=== PATIENT | female | born 1965 | race African-American/Black ===

== ENCOUNTER 2017-06-29 12:53 | Outpatient (CLI) | payer BC ==
--- NOTE | 2017-06-29 14:52 | Ultrasound Report ---
Bilateral diagnostic mammogram with sonogram right breast: Compared to 03/21/13. CAD study utilized. History: Palpable mass right breast. Findings: Heterogeneous breast parenchyma bilaterally being more dense on the right breast from 12 to 4:00. No discrete mass is seen. There is thickening of the skin noted around the areola with retraction. No microcalcification. Benign appearing axillary nodes. Sonographic examination of right breast reveals a complex mass measuring 2.8 x 1.9 x 3.2 cm in diameter at approximate 1:00 position with edema of the adjacent soft tissue. There is hypoechoic spiculated mass identified in the subareolar area right breast. There is a benign cyst measuring 0.8 cm in diameter noted at 9:00 right breast. Single right axillary lymph node is noted measuring 1.7 cm in diameter intermediate for malignancy. 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 Initial MRI scan recommended for further evaluation. Dr. Hernández's nurse was informed of the findings at 2:46 PM on 06/19/17. BI-RADS CATEGORY: 0 = Needs additional imaging evaluation ACR BI-RADS MAMMOGRAPHIC CODES: 0 = Needs additional imaging evaluation; 1 = Negative; 2 = Benign; 3 = Probably benign; 4 = Suspicious; 5 = Malignant; 6 = Known biopsy-proven malignancy COMMENT: 1. Dense breast tissue, i.e., adenosis, fibrocystic changes, etc., may obscure an underlying neoplasm. 2. Approximately 10% of cancers are not detected with mammography. 3. A negative mammography report should not delay biopsy if a clinically suspicious mass is present. COMMENT: Patient follow-up letters are generated in [employer]. Her
== END 2017-06-29 12:54 | disposition home or self-care (01) ==
LOC: MAMMO 12:53
PROVIDERS: ATTEND Internal Medicine
DX: N60.01 Solitary cyst of right breast (principal); N63 Unspecified lump in breast
CPT/HCPCS: 76641; G0204; 77066; G0206-RT

== ENCOUNTER 2017-07-05 12:07 | Outpatient (CLI) | payer BC ==
--- NOTE | 2017-07-07 13:26 | Magnetic Resonance Report ---
BILATERAL BREAST MRI WITHOUT AND WITH CONTRAST: 07/05/17 12:07:00 CLINICAL: Right breast mass. COMPARISON:06/29/17 bilateral mammogram and right breast ultrasound.. TECHNIQUE: Axial 1.0-mm T1 without, axial high resolution 2.0-mm T2 and axial 1.0-mm dynamic Vibrant high-resolution postcontrast T1 fat saturation sequences on a 1.5 Bettina magnet. The examination was performed with an 8 channel dedicated Sentinelle breast coil. Post processing with CAD and subtraction was performed on an [employer] workstation. 14.0 cc of Multihance was injected without incident for the contrast portion of the exam. Consent was obtained prior to the administration of the contrast. FINDINGS: Right: Marked background parenchymal enhancement. The right breast is enlarged compared to the left. An irregular upper inner quadrant enhancing mass measures 3.8 x 3.2 x 4.0 cm based on the T2 sequence which demonstrates a heterogeneous irregular mass. The epicenter of the mass is 8.6 cm from the nipple and 3.7 cm from the chest wall. The post contrast sequences suggest the possibility that the mass is actually larger since there is marked enhancement at the periphery of the mass measured on T2. It demonstrates heterogeneous enhancement with mixed kinetics, 526% peak enhancement and 58% type III washout. No extension to the skin and no abnormal skin enhancement. The skin of the medial right breast is mildly thickened (2 mm). Numerous scattered small benign cysts throughout the right breast. A suspicious level I right axillary lymph node has an irregular cortical margin with minimal central fat and measures 2.0 x 1.2 x 1.3 cm. No suspicious internal mammary lymph nodes. Left: Minimal background parenchymal enhancement. No mass or suspicious enhancement of the left breast. Multiple small cysts. A 1.0 cm lower outer cyst is hyperintense on T1 which is consistent with a hemorrhagic cyst. There is also a 1.5 cm oval smooth lower outer lipoma. No suspicious left axillary or left internal mammary lymph nodes. IMPRESSION: 1. A highly suspicious 4.0 cm right upper inner breast mass and a suspicious right axillary lymph node. Based on the enhancement pattern of the right breast the mass may actually be larger than 4 cm. Recommend ultrasound-guided needle biopsy of the right breast and ultrasound guided needle biopsy of the suspicious right axillary lymph node. 2. Mild skin thickening of the right breast but no signs to suggest inflammatory carcinoma with skin involvement. 3. Negative left breast with benign cysts. RIGHT BI-RADS 5 - - Highly Suggestive of Malignancy LEFT BI-RADS 2 -- Benign
== END 2017-07-05 12:08 | disposition home or self-care (01) ==
LOC: SPVIMAG 12:07
PROVIDERS: ATTEND Internal Medicine
DX: N60.01 Solitary cyst of right breast (principal); N60.02 Solitary cyst of left breast; N63 Unspecified lump in breast; N64.4 Mastodynia
CPT/HCPCS: 0159T; A9577; C8908; 77059

== ENCOUNTER 2017-07-15 08:31 | Outpatient (CLI) | payer BC ==
--- NOTE | 2017-07-15 11:46 | Ultrasound Report ---
ULTRASOUND GUIDED NEEDLE CORE BIOPSY WITH CLIP PLACEMENT RIGHT BREAST AND ULTRASOUND GUIDED NEEDLE CORE BIOPSY OF A RIGHT AXILLARY LYMPH NODE : 07/15/17 CLINICAL: Right breast mass and a suspicious right axillary lymph node. COMPARISON :06/29/17 FINDINGS: The procedure was explained to the patient and informed consent was obtained. Ultrasound demonstrated the previously described large upper inner mass. The skin was prepped with Betadine and anesthetized with 1% lidocaine. Ultrasound needle core biopsy was performed through a small dermatotomy using ultrasound guidance, 2% lidocaine with epinephrine for deep anesthesia and a 14-gauge Achieve biopsy device. Multiple cores were obtained and placed in formalin. A 14 gauge Mammostar barbell shape clip was deployed within the lesion. The skin in the axilla was prepped with Betadine and anesthetized with 1% lidocaine. Ultrasound guided needle core biopsy of a lymph node was performed through a small dermatotomy using 2% lidocaine with epinephrine for deep anesthesia and an 18-gauge Achieve biopsy device. 2 samples were obtained and placed in formalin. A clip was deployed within the lymph node. Hemostasis was obtained at both sites with minimal pressure and sterile dressings were applied. The patient tolerated the procedure well and there were no apparent complications. She was discharged in good condition and was given instructions for wound care and followup. IMPRESSION: Uncomplicated ultrasound-guided needle core biopsy of a right breast mass and uncomplicated needle core biopsy of a right lymph node.
--- NOTE | 2017-07-15 11:48 | Mammography Report ---
RIGHT DIGITAL DIAGNOSTIC MAMMOGRAM: 07/15/17 08:31:00 CLINICAL: For clip placement immediately status post ultrasound biopsy. COMPARISON:06/29/17 FINDINGS: A biopsy clip is now identified within the upper inner mass and a second clip is identified in the right axilla on the MLO view. IMPRESSION: Concordant clip placement status post ultrasound biopsy. BI-RADS CATEGORY: 5 - - Highly Suggestive of Malignancy Pathology pending.
== END 2017-07-15 08:32 | disposition home or self-care (01) ==
LOC: SPVWC 08:31
PROVIDERS: ATTEND Internal Medicine
DX: N60.31 Fibrosclerosis of right breast (principal); N63 Unspecified lump in breast
CPT/HCPCS: 19083; 38525; 88305; 88312; A4648; G0206

== ENCOUNTER 2017-08-02 11:26 | Outpatient (CLI) | payer BC | END 2017-08-02 11:27 | disposition home or self-care (01) | LOC: LAB 11:26 | PROVIDERS: ATTEND Surgery | DX: A15.9 Respiratory tuberculosis unspecified (principal) | CPT/HCPCS: 36415; 82164 ==

== ENCOUNTER 2017-08-06 09:54 | Outpatient (CLI) | payer BC ==
--- NOTE | 2017-08-06 10:37 | XRay Report ---
CHEST 2 VIEWS INDICATION: TB diagnosis. COMPARISON: None similar. FINDINGS: PA and lateral chest radiographs demonstrate normal cardiomediastinal silhouette. Slightly limited inspiration and crowded infrahilar markings. No focal consolidation, pleural effusions or CHF. Small surgical clip may be noted in the right breast laterally. Probable cholecystectomy. Demineralized bones. CONCLUSION: No acute chest process, as described. Thank you for the opportunity to participate in this patient's care.
== END 2017-08-06 09:55 | disposition home or self-care (01) ==
LOC: XRAY 09:54
PROVIDERS: ATTEND Surgery
DX: A15.9 Respiratory tuberculosis unspecified (principal)
CPT/HCPCS: 71020

== ENCOUNTER 2019-06-14 13:12 | Emergency (ER) | payer BC ==
--- NOTE | 2019-06-14 13:46 | Event Note ---
ED Screening Note Date of service: 06/14/19 Time: 13:45 ED Screening Note: 54 y o female presents to Ed cc of weakness, fatigue and body aches x wednesday This initial assessment/diagnostic orders/clinical plan/treatment(s) is/are subject to change based on patients health status, clinical progression and re- assessment by fellow clinical providers in the ED. Further treatment and workup at subsequent clinical providers discretion. Patient/guardian urged not to elope from the ED as their condition may be serious if not clinically assessed and managed. Initial orders include: labs, ua
[2019-06-14 14:14] LABS: Basophils # (Auto) 0.1 K/mm3 (0.0-0.1); Basophils % (Auto) 0.5 % (0.0-1.8); Eosinophils # (Auto) 0.1 K/mm3 (0.0-0.4); Eosinophils % (Auto) 0.5 % (0.0-4.3); Hematocrit 45.2 % (30.3-42.9); Hemoglobin 15.4 gm/dl (10.1-14.3); Lymphocytes # (Auto) 2.7 K/mm3 (1.2-5.4); Lymphocytes % (Auto) 20.9 % (13.4-35.0); Mean Corpuscular HGB Conc 34 % (30-34); Mean Corpuscular Volume 87 fl (79-97); Monocytes # (Auto) 0.9 K/mm3 (0.0-0.8); Monocytes % (Auto) 6.6 % (0.0-7.3); Platelet Count 397 K/mm3 (140-440); Red Blood Count 5.22 M/mm3 (3.65-5.03); Red Cell Distribution Width 12.8 % (13.2-15.2)
[2019-06-14 14:36] LABS: BUN/Creatinine Ratio 28; Blood Urea Nitrogen 17 mg/dL (7-17); Calcium 9.9 mg/dL (8.4-10.2); Hemolysis Index 14
--- NOTE | 2019-06-14 14:37 | XRay Report ---
CHEST 2 VIEWS INDICATION / CLINICAL INFORMATION: Upper Respiratory Infection. Flulike symptoms. COMPARISON: 08/06/2017. FINDINGS: SUPPORT DEVICES: None. HEART / MEDIASTINUM: The heart size and pulmonary vasculature are normal. LUNGS / PLEURA: No significant pulmonary or pleural abnormality. No pneumothorax. ADDITIONAL FINDINGS: No significant additional findings. IMPRESSION: No acute abnormality or significant change. There is no evidence of pneumonia. Signer Name: Tyler Long MD Signed: 06/14/2019 2:32 PM Workstation Name: [id number]
[2019-06-14 14:40] LABS: Bilirubin,Urine NEG (Negative); Blood,Urine SM (Negative); Color,Urine Straw (Yellow); Mucus,Urine FEW /HPF; Protein,Urine <15 mg/dL mg/dL (Negative); Urobilinogen,Urine < 2.0 mg/dL (<2.0)
--- NOTE | 2019-06-14 18:01 | Emergency Department Report ---
ED General Adult HPI - General Chief complaint: Upper Respiratory Infection Stated complaint: FLU SYMPTONS Time Seen by Provider: 06/14/19 13:44 Source: family Mode of arrival: Wheelchair Limitations: No Limitations, Language Barrier - History of Present Illness Initial comments: 54yo F states that she has been having weakness and flu-like symptoms for 4 days. She states that she is currently on Erythromycin 100mg BID for her cough symptoms. -: days(s) Location: chest Radiation: non-radiation Severity scale (0 -10): 5 (moderate) Quality: aching Consistency: constant Improves with: none Worsens with: none - Related Data Home Medications Medication Instructions Recorded Confirmed Last Taken Citalopram Hydrobromide 10 mg PO DAILY 07/12/18 07/12/18 Unknown [Citalopram HBr] Estrogen,Con/M-Progest Acet 1 each PO DAILY 07/12/18 07/12/18 Unknown [Prempro 0.625-5 mg Tablet] clonazePAM [Clonazepam] 1 mg PO TID 07/12/18 07/12/18 Unknown Previous Rx's Medication Instructions Recorded Last Taken Type Pantoprazole [Protonix] 40 mg PO QDAY #14 tablet 07/14/18 Unknown Rx ALBUTEROL Inhaler (OR & NICU) 2 puff IH QID PRN #1 inhalation 06/14/19 Unknown Rx [Proair] cephALEXin [Keflex] 500 mg PO Q6HR 10 Days #40 capsule 06/14/19 Unknown Rx Allergies Allergy/AdvReac Type Severity Reaction Status Date / Time No Known Allergies Allergy Unverified 06/29/17 12:53 ED Review of Systems ROS: Stated complaint: FLU SYMPTONS Other details as noted in HPI ED Past Medical Hx - Past Medical History Previous Medical History?: Yes Hx Hypertension: Yes Hx Psychiatric Treatment: Yes (Anxiety) - Surgical History Past Surgical History?: Yes Hx Cholecystectomy: Yes - Social History Smoking Status: Never Smoker Substance Use Type: None - Medications Home Medications: Home Medications Medication Instructions Recorded Confirmed Last Taken Type Citalopram Hydrobromide 10 mg PO DAILY 07/12/18 07/12/18 Unknown History [Citalopram HBr] Estrogen,Con/M-Progest Acet 1 each PO DAILY 07/12/18 07/12/18 Unknown History [Prempro 0.625-5 mg Tablet] clonazePAM [Clonazepam] 1 mg PO TID 07/12/18 07/12/18 Unknown History Pantoprazole [Protonix] 40 mg PO QDAY #14 tablet 07/14/18 Unknown Rx ALBUTEROL Inhaler (OR & NICU) 2 puff IH QID PRN #1 inhalation 06/14/19 Unknown Rx [Proair] cephALEXin [Keflex] 500 mg PO Q6HR 10 Days #40 capsule 06/14/19 Unknown Rx ED Physical Exam - General Limitations: No Limitations, Language Barrier General appearance: alert, in no apparent distress - Head Head exam: Present: atraumatic, normocephalic - Eye Eye exam: Present: normal appearance - ENT ENT exam: Present: mucous membranes moist - Neck Neck exam: Present: normal inspection - Respiratory Respiratory exam: Present: rales - Cardiovascular Cardiovascular Exam: Present: regular rate, normal rhythm. Absent: systolic murmur, diastolic murmur, rubs, gallop - GI/Abdominal GI/Abdominal exam: Present: soft, normal bowel sounds - Extremities Exam Extremities exam: Present: normal inspection - Back Exam Back exam: Present: normal inspection - Neurological Exam Neurological exam: Present: alert, oriented X3 - Psychiatric Psychiatric exam: Present: normal affect, normal mood - Skin Skin exam: Present: warm, dry, intact, normal color. Absent: rash ED Course Vital Signs 06/14/19 06/14/19 13:34 18:24 Temperature 98.6 F Pulse Rate 108 H 86 Respiratory 18 18 Rate Blood Pressure 122/81 Blood Pressure 120/80 [Left] O2 Sat by Pulse 98 98 Oximetry ED Medical Decision Making - Lab Data Result diagrams: 06/14/19 13:47 06/14/19 13:47 - Medical Decision Making 54yo F states that she has been having weakness and flu-like symptoms for 4 days. She states that she is currently on Erythromycin 100mg BID for her cough symptoms. A chest x-ray was ordered and the results are listed below. The patient will be given an albuterol inhaler for the cough. Labs were obtained a increased WBC was seen. Therefore, the patient was started on Keflex. She was told to f/u with Primary care and see ER if symptoms worsen or new severe symptoms arise. . Patient: LEONIDES PRYOR MR#: [id number] : 1965 Acct:[id number] Age/Sex: 54 / F ADM Date: 06/14/19 Loc: ED Attending Dr: Ordering Physician: ALEXANDER GREER Date of Service: 06/14/19 Procedure(s): XR chest routine 2V Accession Number(s): [id number] cc: ALEXANDER GREER Fluoro Time In Minutes: CHEST 2 VIEWS INDICATION / CLINICAL INFORMATION: Upper Respiratory Infection. Flulike symptoms. COMPARISON: 08/06/2017. FINDINGS: SUPPORT DEVICES: None. HEART / MEDIASTINUM: The heart size and pulmonary vasculature are normal. LUNGS / PLEURA: No significant pulmonary or pleural abnormality. No pneumothorax. ADDITIONAL FINDINGS: No significant additional findings. IMPRESSION: No acute abnormality or significant change. There is no evidence of pneumonia. Signer Name: Tyler Long MD Signed: 06/14/2019 2:32 PM Workstation Name: [id number] Transcribed By: RT Dictated By: Tyler Long MD Electronically Authenticated By: Tyler Long MD Signed Date/Time: 06/14/19 1432 Critical care attestation.: If time is entered above; I have spent that time in minutes in the direct care of this critically ill patient, excluding procedure time. ED Disposition Clinical Impression: Bronchitis, UTI (urinary tract infection) Disposition: DC-01 TO HOME OR SELFCARE Is pt being admited?: No Does the pt Need Aspirin: No Condition: Stable Instructions: Acute Bronchitis (ED), Chronic Bronchitis (ED) Additional Instructions: The patient will be given an albuterol inhaler for the cough. Labs were obtained a increased WBC was seen. Therefore, the patient was started on Keflex. She was told to f/u with Primary care and see ER if symptoms worsen or new severe symptoms arise. Prescriptions: cephALEXin [Keflex] 500 mg PO Q6HR 10 Days #40 capsule ALBUTEROL Inhaler (OR & NICU) [Proair] 2 puff IH QID PRN #1 inhalation PRN Reason: Shortness Of Breath Referrals: PRIMARY CARE, [Referring] - [facility] Days [facility] - 3-5 Days Time of Disposition: 18:13
[2019-06-14 18:26] VITALS: BP 120/80
== END 2019-06-14 18:24 | disposition home or self-care (01) ==
LOC: ED 13:12
DX: J40 Bronchitis, not specified as acute or chronic (principal); N39.0 Urinary tract infection, site not specified; I10 Essential (primary) hypertension; F41.9 Anxiety disorder, unspecified; Z79.899 Other long term (current) drug therapy
CPT/HCPCS: 36415; 71046; 80048; 81001; 85025; 86308; 87086; 99284

== ENCOUNTER 2021-02-12 08:14 | Outpatient (CLI) | payer BC ==
--- NOTE | 2021-02-12 13:51 | Mammography Report ---
BILATERAL DIGITAL DIAGNOSTIC MAMMOGRAM WITH CAD CONVENTIONAL, 02/12/2021 LEFT LIMITED BREAST ULTRASOUND CLINICAL INFORMATION / INDICATION: History of left breast nodules on recent ultrasound TECHNIQUE: Digital bilateral mammographic imaging was performed. Limited ultrasound was performed. Th is examination was interpreted with the benefit of Computer-Aided Detection (CAD) analysis. COMPARISON: Bilateral mammogram 03/12/2020, left breast ultrasound 02/03/2021 FINDINGS: Breast Density: The breasts are heterogeneously dense, which may obscure small masses. MAMMOGRAPHIC FINDINGS: Bilateral benign-appearing calcifications are seen. No significant changes are noted. No discrete masses are seen. Right biopsy changes are noted again. ULTRASOUND FINDINGS: Targeted ultrasound evaluation was performed of the area of interest. Benign-mayte earing nodes are seen on the left axilla. 2 hypoechoic solid nodules are again noted in the upper out er quadrant from 1:00 to 3:00. Larger is at 1:00 with a length of 1.7 cm. This appears to correspond to the lesion labeled as 2:00 on recent imaging. The lesion labeled as 4:00 on recent imaging appears to correspond today to an 11 mm nodule at 3:00 today. Between these 2 is a possible very elongated 1 8 mm x 3 mm questionable nodule which I believe is more likely a lobule of breast tissue and was not clearly imaged before. I doubt this is a real lesion. All noted areas are wider than tall and show no shadowing or obvious vascularity. IMPRESSION: As noted above, there are 2, and very questionably 3, benign-appearing solid nodules in t he upper outer quadrant of the left breast. Appearance most suggestive benign fibroadenomata. Follow up recommendation: Unless there is significant clinical concern, recommend follow-up left [address] ultrasound in 6 months. BI-RADS Category 3: Probably Benign. Followup in 6 months. A "normal" or negative report should not discourage follow up or biopsy of a clinically significant f inding. A written summary of these findings will be mailed to the patient. The patient will be entered into a mammography reporting system which will generate a reminder letter for the patient's next appointmen t at the appropriate interval. According to the [employer], yearly mammograms are recommended starting at age 40 and continuing as long as a woman is in good health. Breast MRI is recommended for women with an mayte roximately 20-25% or greater lifetime risk of breast cancer, including women with a strong family his tory of breast or ovarian cancer and women who have been treated for Hodgkin's disease. Signer Name: Gulshan Foley MD Signed: 02/12/2021 1:46 PM Workstation Name: [id number]
== END 2021-02-12 08:15 | disposition home or self-care (01) ==
LOC: SPVWC 08:14
PROVIDERS: ATTEND Surgery
DX: N63.21 Unspecified lump in the left breast, upper outer quadrant (principal); R92.1 Mammographic calcification found on diagnostic imaging of breast
CPT/HCPCS: 77066

== ENCOUNTER 2021-08-11 08:09 | Outpatient (CLI) | payer BC ==
--- NOTE | 2021-08-11 09:36 | Ultrasound Report ---
ULTRASOUND BREAST LEFT LIMITED, 08/11/2021 CLINICAL INFORMATION / INDICATION: 6 MONTH F/U. TECHNIQUE: Targeted ultrasound evaluation was performed of the area of interest. COMPARISON: February 12, 2021 FINDINGS: Within the left breast at the 1:00 position, 6 cm from the nipple there is redemonstration of an oval , hypoechoic, well-circumscribed mass measuring 1.8 x 1.1 x 1.5 cm, not significantly changed compare d to previous ultrasound. Within the left breast at the 3 clock position, 4 cm from nipple there is redemonstration of a round, hypoechoic, well-circumscribed mass measuring 1.0 x 1.0 x 0.8 cm, not significantly changed compared to previous ultrasound. Scan through the left axilla demonstrates no concerning lymph nodes. IMPRESSION: Redemonstrated and not significantly changed hypoechoic masses within the left breast. Th deondre most likely represent benign fibroadenomas. Six-month follow-up ultrasound is recommended. At navjot t time a bilateral diagnostic mammogram should be performed. Follow up recommendation: Short term follow up in 6 months. BI-RADS Category 3: Probably Benign. Followup in 6 months. A normal or "negative" report should not preclude biopsy or follow-up of a clinically suspicious find ing. Signer Name: Alvarez Kelley DO Signed: 08/11/2021 9:31 AM Workstation Name: [id number]
== END 2021-08-11 08:10 | disposition home or self-care (01) ==
LOC: MAMMO 08:09
PROVIDERS: ATTEND Internal Medicine
DX: R92.2 Inconclusive mammogram (principal)